=== PATIENT | male | born 1990 | race Caucasian/White ===

== ENCOUNTER 2018-09-06 16:58 | Emergency (ER) | payer SELFPAY ==
--- NOTE | 2018-09-06 17:06 | ER Report ---
History and Physical Time Seen By MD: 17:06 Hx. of Stated Complaint: Pt states "a car fell on me" Saturday, c/o L shoulder pain since that time. PMS intact distally. No LOC. No other injury. HPI/ROS CHIEF COMPLAINT: Left shoulder pain HISTORY OF PRESENT ILLNESS: 27-year-old male patient presents to emergency room with complaint of left shoulder pain. Patient states that he's been having this pain for the past 4 days. He states that on Saturday he was working. He was underneath it vehicle when the lena failed. The resulted in the car falling down onto his right shoulder. He was lying on his side on the concrete with his left shoulder down. He states that his left shoulder rolled up. He states that since then he's been having pain. He states initially the pain was significant. He states that seemed to improve. However every time he moves a certain way that he will have pain in the shoulder. He states he's been taking some ibuprofen with moderate improvement. He denies any numbness or tingling to the hand or arm. REVIEW OF SYSTEMS: Respiratory: No cough, no dyspnea. Cardiovascular: No chest pain, no palpitations. Gastrointestinal: No vomiting, no abdominal pain. Musculoskeletal: As noted above Allergies: Coded Allergies: No Known Drug Allergies (Unverified , 09/06/18) Home Meds Active Scripts Methocarbamol (ROBAXIN) 500 Mg Tablet, 1500 MG PO TID, #30 TAB Prov:CYN DAVISP 09/06/18 Diclofenac Sodium (DICLOFENAC SODIUM) 75 Mg Tablet.dr, 75 MG PO BID, #20 TAB Prov:CYN DAVIS CUTTER INSPECTOR 09/06/18 Past Medical/Surgical History Patient has no pertinent medical or surgical history. Reviewed Nurses Notes: Yes Constitutional Vital Sign - Last 24 Hours 09/06/18 09/06/18 17:02 18:37 Temp 98.3 Pulse 88 76 Resp 16 16 B/P (MAP) 148/81 164/82 (109) Pulse Ox 93 94 O2 Delivery Room Air Room Air Physical Exam General Appearance: The patient is alert, has no immediate need for airway protection and no current signs of toxicity. Respiratory: Chest is non tender, lungs are clear to auscultation. Cardiac: regular rate and rhythm Musculoskeletal: Neck: Neck is supple and non tender. Extremities have full range of motion and are non tender. Patient does have some tender to the medial left shoulder, his chest distal to the clavicle. There is some tenderness along the sternocleidomastoid muscle of the neck. Skin: No rashes or lesions. DIFFERENTIAL DIAGNOSIS: After history and physical exam differential diagnosis was considered for muscle strain, contusion, fracture. Medical Decision Making EKG/Imaging Imaging CERVICAL SPINE MIN 4 VIEW HISTORY: shoulder pain radiating to neck AP, lateral, odontoid and oblique views of the cervical spine. FINDINGS: Vertebral bodies well-maintained with no compression deformities or fractures. No posterior offset. Facet joints well-maintained and aligned. Prevertebral soft tissues are unremarkable. Oblique views demonstrates no obvious neural foraminal narrowing. Odontoid lateral masses are well-maintained. IMPRESSION: 1. Negative cervical spine Report Dictated By: Pio Luz MD at 09/06/2018 6:07 PM Report E-Signed By: Pio Luz MD at 09/06/2018 6:09 PM CLAVICLE LEFT HISTORY: shoulder pain radiating to neck Clavicle two view FINDINGS: No acute fractures. AC joints normal. No DJD. Glenohumeral joints unremarkable. Visualized scapula proximal humerus and ribs demonstrates no acute fracture. Soft tissues unremarkable. IMPRESSION: 1. Negative clavicle Report Dictated By: Pio Luz MD at 09/06/2018 6:09 PM Report E-Signed By: Pio Luz MD at 09/06/2018 6:09 PM ED Course/Re-evaluation ED Course Patient was admitted to an exam room, history and physical were obtained. Differential diagnoses work considered. On examination lungs are clear, heart is regular, patient does have some tenderness to the left clavicle as well as the left side of the neck. X-rays done of the left clavicle as well as the neck. X- rays were negative. I discussed my findings with patient and his family. I believe that with the injury that his body curled up resulting in the muscles taking the brunt exposed to the bones. And that he strained the muscles along the neck as well as the shoulder. We'll go ahead and place him in a sling. We will go ahead and give him a limited supply of anti-inflammatories as well as muscle relaxers. He is to wear the sling when he is not working for the next week. He is to take medications as instructed. I will further he does not take the muscle relaxer while he is working. He is return to emergency room if condition worsens. If pain persists throughout the next week I would like and follow-up with [facility]. I discussed with patient who verbalized understanding and agreement with plan. Decision to Disposition Date: Sep 06, 2018 Decision to Disposition Time: 18:25 Depart Departure Latest Vital Signs Vital Signs Date Time Temp Pulse Resp B/P (MAP) Pulse Ox O2 Delivery O2 Flow Rate FiO2 09/06/18 18:37 76 16 164/82 (109) 94 Room Air 09/06/18 17:02 98.3 Impression: Primary Impression: Left shoulder strain Condition: Improved Disposition: HOME OR SELF-CARE New Scripts Methocarbamol (ROBAXIN) 500 Mg Tablet 1500 MG PO TID, #30 TAB Prov: CYN DAVIS 09/06/18 Diclofenac Sodium (DICLOFENAC SODIUM) 75 Mg Tablet.dr 75 MG PO BID, #20 TAB Prov: CYN DAVIS 09/06/18 Patient Instructions: Muscle Strain (ED) Additional Instructions: Limit activity by pain. Ice the shoulder 2-3 times a day. Take the medication as prescribed. Follow up with [facility] in one week if there is no improvement. No Ibuprofen, Aleve, Advil, Naproxen while taking the prescriptions. Return to the ER if condition worsens. Problem Qualifiers Primary Impression: Left shoulder strain Encounter type: initial encounter Qualified Codes: S46.912A - Strain of unspecified muscle, fascia and tendon at shoulder and upper arm level, left arm, initial encounter CYN DAVIS Sep 06, 2018 17:06
--- NOTE | 2018-09-06 18:13 | RADIOLOGY IMAGING REPORT ---
FACILITY: [facility] - [place] PATIENT NAME: John Cavazos : 1990 MR: [id number] V: [id number] EXAM DATE: ORDERING PHYSICIAN: CYN DAVIS TECHNOLOGIST: Location: [facility] Patient: John Cavazos : 1990 Visit/Account:[id number] Date of Sevice: 09/06/2018 CLAVICLE LEFT HISTORY: shoulder pain radiating to neck Clavicle two view FINDINGS: No acute fractures. AC joints normal. No DJD. Glenohumeral joints unremarkable. Visualized scapul a proximal humerus and ribs demonstrates no acute fracture. Soft tissues unremarkable. IMPRESSION: 1. Negative clavicle Report Dictated By: Pio Luz MD at 09/06/2018 6:09 PM Report E-Signed By: Pio Luz MD at 09/06/2018 6:09 PM WSN:[email or web address]
--- NOTE | 2018-09-06 18:13 | RADIOLOGY IMAGING REPORT ---
FACILITY: [facility] - [place] PATIENT NAME: John Cavazos : 1990 MR: [id number] V: [id number] EXAM DATE: ORDERING PHYSICIAN: CYN DAVIS TECHNOLOGIST: Location: [facility] [place] Patient: John Cavazos : 1990 Visit/Account:[id number] Date of Sevice: 09/06/2018 CERVICAL SPINE MIN 4 VIEW HISTORY: shoulder pain radiating to neck AP, lateral, odontoid and oblique views of the cervical spine. FINDINGS: Vertebral bodies well-maintained with no compression deformities or fractures. No posterior offset. Facet joints well-maintained and aligned. Prevertebral soft tissues are unremarkable. Oblique view s demonstrates no obvious neural foraminal narrowing. Odontoid lateral masses are well-maintained. IMPRESSION: 1. Negative cervical spine Report Dictated By: Pio Luz MD at 09/06/2018 6:07 PM Report E-Signed By: Pio Luz MD at 09/06/2018 6:09 PM WSN:[email or web address]
[2018-09-06] MEDS ORDERED: DICL-195 PO (18:23)
[2018-09-06] MEDS ORDERED: METH-542 PO (18:23)
[2018-09-06 18:37] VITALS: BP 164/82
== END 2018-09-06 18:38 | disposition home or self-care (01) ==
LOC: ER 17:15
DX: S46.912A Strain of unspecified muscle, fascia and tendon at shoulder and upper arm level, left arm, initial encounter (principal)
CPT/HCPCS: 72050; 73000; 99284; A4565